=== PATIENT | male | born 1935 | race American Indian/Alaskan Native ===

== ENCOUNTER 2022-06-15 14:31 | Inpatient (IN) | payer MEDICARE ==
[2022-06-15] MEDS ORDERED: SODIUM CHLORIDE 0.9% 500 ML 500 ML IV ONE ×2 (14:47→15:52)
--- NOTE | 2022-06-15 15:13 | XRay Report ---
CHEST 1 VIEW 06/15/2022 2:05 PM INDICATION / CLINICAL INFORMATION: Syncope. COMPARISON: None available. FINDINGS: SUPPORT DEVICES: None. HEART / MEDIASTINUM: The heart size and pulmonary vasculature are normal. The aorta is normal in bk [place]. LUNGS / PLEURA: No significant pulmonary or pleural abnormality. No pneumothorax. ADDITIONAL FINDINGS: The right hemidiaphragm is slightly elevated. There are surgical changes in the lower cervical spine. IMPRESSION: No acute findings. Signer Name: Akshat Vicente MD Signed: 06/15/2022 3:09 PM Workstation Name: [email or web address]
--- NOTE | 2022-06-15 15:50 | Emergency Department Report ---
ED Syncope HPI - General Chief Complaint: Syncope Stated Complaint: SYNCOPE Time Seen by Provider: 06/15/22 15:27 Source: patient, family, old records (No previous record for review) Exam Limitations: no limitations - History of Present Illness Initial Comments: 86-year male with a past medical history of CAD with stent, multiple myeloma currently in remission, and hypertension presents to the hospital after syncopal episode while taking a shower. Patient was being assisted by his son. His son states patient was sitting in his shower chair when he complained of feeling li ghtheaded, weak, and thirsty. His son left to get water, when he returned patient was passed out in the shower chair. Patient came to and passed out 2 more times including after he was laid flat on the floor. No diaphoresis, vomiting, or respiratory distress noted. Patient denies preceding or current headache, chest pain, calf tenderness, leg edema, history of PE/DVT, shortness of breath, abdominal pain, or dysuria. Patient did not have anything to eat or much to drink this morning. PMD: Gustavo Patient's current medications include gabapentin 100 mg twice daily Flomax 0.4 mg twice daily Amlodipine 10 mg daily Losartan 50 mg daily Aspirin 81 mg daily As for statin 40 mg daily - Related Data Allergies/Adverse Reactions: Allergies No Known Allergies Allergy (Verified 06/15/22 14:37) Home Medications: Ambulatory Orders Aspirin [Adult Aspirin] 81 mg PO DAILY 06/16/22 AtorvaSTATin [Lipitor] 40 mg PO QHS 06/16/22 Gabapentin 100 mg PO Q8HR 06/16/22 Losartan [Cozaar] 50 mg PO QDAY 06/16/22 Tamsulosin [Flomax] 0.4 mg PO QDAY 06/16/22 amLODIPine 10 mg PO DAILY 06/16/22 ED Review of Systems ROS: Stated complaint: SYNCOPE Other details as noted in HPI Comment: All other systems reviewed and negative ED Past Medical Hx - Past Medical History Hx Hypertension: Yes Hx Heart Attack/AMI: Yes (1 stent) Hx of Cancer: Yes (Multiple myeloma) Additional medical history: 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 - Surgical History Additional Surgical History: Neck and back surgery - Medications Home Medications: Home Medications Medication Instructions Recorded Confirmed Last Taken Type Aspirin [Adult Aspirin] 81 mg PO DAILY 06/16/22 06/16/22 06/14/22 09:00 History AtorvaSTATin [Lipitor] 40 mg PO QHS 06/16/22 06/16/22 06/14/22 21:00 History Gabapentin 100 mg PO Q8HR 06/16/22 06/16/22 06/14/22 21:00 History Losartan [Cozaar] 50 mg PO QDAY 06/16/22 06/16/22 06/14/22 09:00 History Tamsulosin [Flomax] 0.4 mg PO QDAY 06/16/22 06/16/22 06/14/22 09:00 History amLODIPine 10 mg PO DAILY 06/16/22 06/16/22 06/14/22 09:00 History ED Physical Exam - General Limitations: No Limitations - Other Other exam information: General: No acute distress Head: Atraumatic Eyes: normal appearance ENT: Moist mucous membranes Neck: Normal appearance, no midline tenderness Chest: Clear to auscultation bilaterally CV: Regular rate and rhythm Abdomen: Soft, normal bowel sounds, nontender, nondistended, no rebound or guarding Back: Normal inspection Extremity: Normal inspection, full range of motion Neuro: Alert O x 3, no facial asymmetry, speech clear, 4+ right lower extremity strength compared to 5/5, 5/5 bilateral upper extremity strength. Sensation grossly intact. No calf tenderness or leg edema Psych: Appropriate behavior Skin: No rash ED Course Vital Signs 06/15/22 06/15/22 06/15/22 14:35 15:16 15:30 Temperature 98.2 F Pulse Rate 60 52 L 52 L Respiratory 14 11 L Rate Blood Pressure 131/68 Blood Pressure 130/62 [Left] O2 Sat by Pulse 98 99 Oximetry 06/15/22 06/15/22 06/15/22 15:45 16:00 16:16 Temperature Pulse Rate 52 L 51 L 51 L Respiratory 20 19 18 Rate Blood Pressure 167/69 160/67 154/64 Blood Pressure [Left] O2 Sat by Pulse 100 100 100 Oximetry 06/15/22 06/15/22 06/15/22 16:30 16:45 17:00 Temperature Pulse Rate 52 L 54 L 53 L Respiratory 15 17 11 L Rate Blood Pressure 125/70 164/73 125/70 Blood Pressure [Left] O2 Sat by Pulse 99 100 98 Oximetry 06/15/22 06/15/22 06/15/22 17:56 18:00 18:15 Temperature Pulse Rate 59 L 57 L 57 L Respiratory 12 15 16 Rate Blood Pressure 164/73 164/78 161/78 Blood Pressure [Left] O2 Sat by Pulse 96 95 98 Oximetry 06/15/22 06/15/22 06/15/22 18:30 18:45 19:00 Temperature Pulse Rate 57 L 62 66 Respiratory 17 16 19 Rate Blood Pressure 163/76 174/81 176/74 Blood Pressure [Left] O2 Sat by Pulse 97 100 97 Oximetry 06/15/22 06/15/22 06/15/22 19:15 19:30 19:45 Temperature Pulse Rate 73 80 71 Respiratory 21 17 18 Rate Blood Pressure 166/82 174/81 160/71 Blood Pressure [Left] O2 Sat by Pulse 97 97 97 Oximetry 06/15/22 06/15/22 06/15/22 20:00 20:15 20:30 Temperature 98.2 F Pulse Rate 71 69 74 Respiratory 17 18 21 Rate Blood Pressure 153/81 163/74 147/78 Blood Pressure 147/78 [Left] O2 Sat by Pulse 98 97 97 Oximetry 06/15/22 06/15/22 06/15/22 20:45 21:00 21:16 Temperature Pulse Rate 69 72 70 Respiratory 14 16 19 Rate Blood Pressure 152/77 148/76 157/84 Blood Pressure [Left] O2 Sat by Pulse 100 93 98 Oximetry 06/15/22 06/15/22 06/15/22 21:30 21:46 22:00 Temperature Pulse Rate 68 70 70 Respiratory 17 19 19 Rate Blood Pressure 160/83 169/87 160/78 Blood Pressure [Left] O2 Sat by Pulse 96 97 98 Oximetry 06/15/22 06/15/22 06/15/22 22:15 22:30 22:45 Temperature Pulse Rate 70 71 67 Respiratory 19 22 18 Rate Blood Pressure 153/76 164/78 159/78 Blood Pressure [Left] O2 Sat by Pulse 95 98 97 Oximetry 06/15/22 06/15/22 06/15/22 23:00 23:14 23:15 Temperature Pulse Rate 76 68 67 Respiratory 23 17 17 Rate Blood Pressure 166/95 154/80 154/80 Blood Pressure [Left] O2 Sat by Pulse 97 98 97 Oximetry 06/15/22 06/15/22 06/16/22 23:30 23:46 00:00 Temperature Pulse Rate 68 68 67 Respiratory 18 18 20 Rate Blood Pressure 152/80 140/73 143/73 Blood Pressure [Left] O2 Sat by Pulse 96 95 95 Oximetry 06/16/22 00:15 Temperature Pulse Rate 65 Respiratory 16 Rate Blood Pressure 151/73 Blood Pressure [Left] O2 Sat by Pulse 95 Oximetry - Consultations Consultation #1: 06/15/22 20:51 case d/w Gustavo Magallanes. granted permission to admit the patient here ED Medical Decision Making - Lab Data Result diagrams: 06/17/22 05:18 06/17/22 05:18 Lab Results 06/15/22 06/15/22 06/15/22 Range/Units 15:35 15:35 15:35 WBC 2.4 L (4.5-11.0) K/mm3 RBC 3.14 L (3.65-5.03) M/mm3 Hgb 10.2 L (11.8-15.2) gm/dl Hct 31.3 L (35.5-45.6) % MCV 100 H (84-94) fl MCH 33 H (28-32) pg MCHC 33 (32-34) % RDW 17.4 H (13.2-15.2) % Plt Count 102 L (140-440) K/mm3 Lymph % (Auto) 17.3 (13.4-35.0) % [place] % (Auto) 11.4 H (0.0-7.3) % Eos % (Auto) 0.9 (0.0-4.3) % Baso % (Auto) 0.2 (0.0-1.8) % Lymph # (Auto) 0.4 L (1.2-5.4) K/mm3 [place] # (Auto) 0.3 (0.0-0.8) K/mm3 Eos # (Auto) 0.0 (0.0-0.4) K/mm3 Baso # (Auto) 0.0 (0.0-0.1) K/mm3 Seg Neutrophils % 70.2 H (40.0-70.0) % Seg Neutrophils # 1.7 L (1.8-7.7) K/mm3 PT 15.5 H (12.2-14.9) Sec. INR 1.10 (0.87-1.13) Sodium 140 (137-145) mmol/L Potassium 4.0 (3.6-5.0) mmol/L Chloride 106.0 (98-107) mmol/L Carbon Dioxide 23 (22-30) mmol/L Anion Gap 15 mmol/L BUN 26 H (9-20) mg/dL Creatinine 1.2 (0.8-1.3) mg/dL Estimated GFR > 60 ml/min BUN/Creatinine Ratio 22 % Glucose 107 H (75-100) mg/dL Calcium 9.1 (8.4-10.2) mg/dL Magnesium 1.60 L (1.7-2.3) mg/dL Total Bilirubin 0.60 (0.1-1.2) mg/dL AST 30 (5-40) units/L ALT 15 (7-56) units/L Alkaline Phosphatase 99 (35-129) units/L Total Creatine Kinase 208 H (55-170) units/L CK-MB (CK-2) 2.5 (0.0-4.0) ng/mL CK-MB (CK-2) Rel Index 1.2 (0-4) Troponin T 0.075 H (0.00-0.029) ng/mL Total Protein 7.0 (6.3-8.2) g/dL Albumin 3.5 L (3.9-5) g/dL Albumin/Globulin Ratio 1.0 % Triglycerides 67 (2-149) mg/dL Cholesterol 174 (50-199) mg/dL LDL Cholesterol Direct 110 (50-130) mg/dL HDL Cholesterol 50 (40-59) mg/dL Cholesterol/HDL Ratio 3.48 % TSH (0.270-4.200) mlU/mL Free T4 (0.76-1.46) ng/dL 06/15/22 Range/Units 16:23 WBC (4.5-11.0) K/mm3 RBC (3.65-5.03) M/mm3 Hgb (11.8-15.2) gm/dl Hct (35.5-45.6) % MCV (84-94) fl MCH (28-32) pg MCHC (32-34) % RDW (13.2-15.2) % Plt Count (140-440) K/mm3 Lymph % (Auto) (13.4-35.0) % [place] % (Auto) (0.0-7.3) % Eos % (Auto) (0.0-4.3) % Baso % (Auto) (0.0-1.8) % Lymph # (Auto) (1.2-5.4) K/mm3 [place] # (Auto) (0.0-0.8) K/mm3 Eos # (Auto) (0.0-0.4) K/mm3 Baso # (Auto) (0.0-0.1) K/mm3 Seg Neutrophils % (40.0-70.0) % Seg Neutrophils # (1.8-7.7) K/mm3 PT (12.2-14.9) Sec. INR (0.87-1.13) Sodium (137-145) mmol/L Potassium (3.6-5.0) mmol/L Chloride (98-107) mmol/L Carbon Dioxide (22-30) mmol/L Anion Gap mmol/L BUN (9-20) mg/dL Creatinine (0.8-1.3) mg/dL Estimated GFR ml/min BUN/Creatinine Ratio % Glucose (75-100) mg/dL Calcium (8.4-10.2) mg/dL Magnesium (1.7-2.3) mg/dL Total Bilirubin (0.1-1.2) mg/dL AST (5-40) units/L ALT (7-56) units/L Alkaline Phosphatase (35-129) units/L Total Creatine Kinase (55-170) units/L CK-MB (CK-2) (0.0-4.0) ng/mL CK-MB (CK-2) Rel Index (0-4) Troponin T (0.00-0.029) ng/mL Total Protein (6.3-8.2) g/dL Albumin (3.9-5) g/dL Albumin/Globulin Ratio % Triglycerides (2-149) mg/dL Cholesterol (50-199) mg/dL LDL Cholesterol Direct (50-130) mg/dL HDL Cholesterol (40-59) mg/dL Cholesterol/HDL Ratio % TSH 3.110 (0.270-4.200) mlU/mL Free T4 1.48 H (0.76-1.46) ng/dL - EKG Data -: EKG Interpreted by Ri EKG shows normal: sinus rhythm, intervals (GA prolongation 259), ST-T waves (No STEMI) Rate: normal - EKG Data When compared to previous EKG there are: previous EKG unavailable - Radiology Data Radiology results: report reviewed CHEST 1 VIEW 06/15/2022 2:05 PM INDICATION / CLINICAL INFORMATION: Syncope. COMPARISON: None available. FINDINGS: SUPPORT DEVICES: None. HEART / MEDIASTINUM: The heart size and pulmonary vasculature are normal. The aorta is normal in caliber. LUNGS / PLEURA: No significant pulmonary or pleural abnormality. No pneumothorax. ADDITIONAL FINDINGS: The right hemidiaphragm is slightly elevated. There are surgical changes in the lower cervical spine. IMPRESSION: No acute findings. Critical care attestation.: If time is entered above; I have spent that time in minutes in the direct care of this critically ill patient, excluding procedure time. ED Disposition Clinical Impression: Syncope and collapse, Elevated troponin level not due myocardial infarction Disposition: 09 ADMITTED INPATIENT Is pt being admited?: Yes Condition: Stable
[2022-06-15 15:57] LABS: Basophils % (Auto) 0.2 % (0.0-1.8); Eosinophils % (Auto) 0.9 % (0.0-4.3); Hematocrit 31.3 % (35.5-45.6); Hemoglobin 10.2 gm/dl (11.8-15.2); Lymphocytes # (Auto) 0.4 K/mm3 (1.2-5.4); Lymphocytes % (Auto) 17.3 % (13.4-35.0); Mean Corpuscular HGB Conc 33 % (32-34); Mean Corpuscular Volume 100 fl (84-94); Monocytes # (Auto) 0.3 K/mm3 (0.0-0.8); Monocytes % (Auto) 11.4 % (0.0-7.3); Platelet Count 102 K/mm3 (140-440); Red Blood Count 3.14 M/mm3 (3.65-5.03); Red Cell Distribution Width 17.4 % (13.2-15.2)
[2022-06-15 16:07] LABS: INR 1.1 (0.87-1.13)
[2022-06-15 16:20] LABS: Creatine Kinase MB 2.5 ng/mL (0.0-4.0)
[2022-06-15 16:22] LABS: Alanine Aminotransferase 15 units/L (7-56); Albumin 3.5 g/dL (3.9-5); BUN/Creatinine Ratio 22; Blood Urea Nitrogen 26 mg/dL (9-20); Calcium 9.1 mg/dL (8.4-10.2); Hemolysis Index 2
[2022-06-15 16:33] LABS: Chol/HDL Ratio 3.48 %; HDL Cholesterol 50 mg/dL (40-59); LDL Cholesterol,Direct 110 mg/dL (50-130)
[2022-06-15] MEDS ORDERED: MAGNESIUM SULFATE 2 GM/50 ML BAG IV ONE (17:11)
--- NOTE | 2022-06-15 17:26 | Cat Scan Report ---
CT HEAD WITHOUT CONTRAST INDICATION / CLINICAL INFORMATION: syncope, hx of multiple myeloma. TECHNIQUE: All CT scans at this location are performed using CT dose reduction for ALARA by means of automated exposure control. COMPARISON: None available. FINDINGS: CEREBRAL/CEREBELLAR PARENCHYMA: Mild age-related generalized cerebral cortical atrophy. Mild perivent ricular and subcortical chronic microangiopathy. Small chronic lacunar type infarcts within the right external capsule of the basal ganglia likely partially involving the insular cortex. No CT evidence for an acute or subacute territorial infarct. HEMORRHAGE: No acute intra-axial hemorrhage or extra-axial fluid collection. MASS: No mass or mass effect. VENTRICULAR SYSTEM: Normal in size and morphology for the patient's age. ORBITS: Normal as visualized. SOFT TISSUES/SKULL: No scalp hematoma or skull fracture. Small arachnoid granulations along the skull vertex without definite destructive osseous lesion. PARANASAL SINUSES/MASTOID AIR CELLS: Moderate left sphenoid sinus mucosal thickening and air-fluid le larissa. IMPRESSION: 1. No acute intracranial process. 2. 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 3. Moderate left sphenoid sinus mucosal disease. Signer Name: Akshat Cortez MD Signed: 06/15/2022 5:22 PM Workstation Name: [email or web address]
[2022-06-15 18:20] LABS: Free T4 (Free Thyroxine) 1.48 ng/dL (0.76-1.46)
[2022-06-15 21:34] LABS: Color,Urine Yellow (Yellow); Mucus,Urine FEW /HPF
[2022-06-15 21:35] LABS: RBC,Urine < 1.0 /HPF (0.0-6.0)
[2022-06-15] MEDS ORDERED: MAGNESIUM HYDROXIDE (MOM) ORAL LIQD UDC PO PRN (22:20)
[2022-06-15] MEDS ORDERED: ACETAMINOPHEN 325 MG TAB PO PRN (22:20)
[2022-06-15] MEDS ORDERED: ONDANSETRON 4 MG/2 ML INJ IV PRN (22:20)
[2022-06-15] MEDS ORDERED: MORPHINE 2 MG/1 ML INJ IV PRN (22:20)
[2022-06-15] MEDS ORDERED: MORPHINE 4 MG/1 ML INJ IV PRN (22:20)
--- NOTE | 2022-06-15 22:38 | History and Physical Report ---
History of Present Illness Date of examination: 06/15/22 Date of admission: 06/15/2022 Chief complaint: Syncope History of present illness: 86-year-old male with known history of coronary artery disease with stent placement, multiple myeloma in remission, hypertension, presents to the emergency room today for evaluation of syncopal episode. He was in the shower when he has been assisted by his son when he indicates that he felt lightheaded. He also said he felt weak and thirsty. He laid off had a syncopal episode while on the shower chair. He has had 2 other episodes prior to reporting to the emergency room. He denies any chest pain or shortness of breath, no nausea or vomiting, no abdominal pain. Patient denies any headache. No diaphoresis. Work-up in the emergency room today, labs are significant for slightly elevated troponin of 0.075. BUN of 26. Urinalysis was unremarkable. CT of the head shows no acute intracranial process. 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 Chest x-ray shows no acute findings. 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) Past Surgical History: PTCA, Other (Neck and back surgery) Social history: no significant social history Family history: no significant family history Medications and Allergies Allergies Allergy/AdvReac Type Severity Reaction Status Date / Time No Known Allergies Allergy Verified 06/15/22 14:37 Active Meds: Active Medications Acetaminophen (Acetaminophen 325 Mg Tab) 650 mg PO Q4H PRN PRN Reason: Pain MILD(1-3)/Fever >100.5/PERRY Sodium Chloride (Nacl 0.9% 1000 Ml) 1,000 mls @ 125 mls/hr IV DIRECT SARIKA Magnesium Hydroxide (Magnesium Hydroxide (Mom) Oral Liqd Udc) 30 ml PO Q4H PRN PRN Reason: Constipation Morphine Sulfate (Morphine 2 Mg/1 Ml Inj) 2 mg IV Q4H PRN PRN Reason: Pain, Moderate (4-6) Morphine Sulfate (Morphine 4 Mg/1 Ml Inj) 4 mg IV Q4H PRN PRN Reason: Pain , Severe (7-10) Ondansetron HCl (Ondansetron 4 Mg/2 Ml Inj) 4 mg IV Q8H PRN PRN Reason: Nausea And Vomiting Sodium Chloride (Sodium Chloride 0.9% 10 Ml Flush Syringe) 10 ml IV BID SARIKA Sodium Chloride (Sodium Chloride 0.9% 10 Ml Flush Syringe) 10 ml IV PRN PRN PRN Reason: LINE FLUSH Review of Systems Constitutional: no fever, no chills Ears, nose, mouth and throat: no nasal congestion, no sore throat Cardiovascular: no chest pain, no palpitations Respiratory: no cough, no shortness of breath Gastrointestinal: no abdominal pain, no nausea, no vomiting, no diarrhea Genitourinary Male: no dysuria, no hematuria, no flank pain Musculoskeletal: no neck pain, no low back pain Integumentary: no rash, no pruritis Neurological: syncope, no headaches, no confusion Psychiatric: no anxiety, no depression Endocrine: no polyphagia, no polydipsia, no polyuria Exam - Constitutional Vitals: Temp Pulse Resp BP Pulse Ox 98.2 F 69 20 147/78 96 06/15/22 20:30 06/15/22 20:30 06/15/22 20:30 06/15/22 20:30 06/15/22 20:30 General appearance: Present: no acute distress, well-nourished - EENT Eyes: Present: PERRL, EOM intact. Absent: scleral icterus ENT: hearing intact, clear oral mucosa, dentition normal - Neck Neck: Present: supple, normal ROM - Respiratory Respiratory effort: normal Respiratory: bilateral: CTA - Cardiovascular Rhythm: regular Heart Sounds: Present: S1 & S2. Absent: gallop, systolic murmur, diastolic murmur, rub, click - Extremities Extremities: no ischemia, pulses intact, pulses symmetrical, No edema, normal temperature, normal color, Full ROM Peripheral Pulses: within normal limits - Abdominal General gastrointestinal: Present: soft, non-tender, non-distended, normal bowel sounds. Absent: mass - Integumentary Integumentary: Present: clear, warm, dry, normal turgor. Absent: rash - Musculoskeletal Musculoskeletal: strength equal bilaterally - Psychiatric Psychiatric: appropriate mood/affect, intact judgment & insight, memory intact, cooperative - Neurologic Neurologic: CNII-XII intact, no focal deficits, moves all extremities HEART Score - HEART Score Troponin: Troponin T 0.050 ng/mL (0.00-0.029) H D 06/15/22 19:47 Results - Labs CBC & Chem 7: 06/15/22 15:35 06/15/22 15:35 Labs: Abnormal lab results 06/15/22 06/15/22 06/15/22 Range/Units 15:35 15:35 15:35 WBC 2.4 L (4.5-11.0) K/mm3 RBC 3.14 L (3.65-5.03) M/mm3 Hgb 10.2 L (11.8-15.2) gm/dl Hct 31.3 L (35.5-45.6) % MCV 100 H (84-94) fl MCH 33 H (28-32) pg RDW 17.4 H (13.2-15.2) % Plt Count 102 L (140-440) K/mm3 [place] % (Auto) 11.4 H (0.0-7.3) % Lymph # (Auto) 0.4 L (1.2-5.4) K/mm3 Seg Neutrophils % 70.2 H (40.0-70.0) % Seg Neutrophils # 1.7 L (1.8-7.7) K/mm3 PT 15.5 H (12.2-14.9) Sec. BUN 26 H (9-20) mg/dL Glucose 107 H (75-100) mg/dL Magnesium 1.60 L (1.7-2.3) mg/dL Total Creatine Kinase 208 H (55-170) units/L Troponin T 0.075 H (0.00-0.029) ng/mL Albumin 3.5 L (3.9-5) g/dL Free T4 (0.76-1.46) ng/dL 06/15/22 06/15/22 Range/Units 16:23 19:47 WBC (4.5-11.0) K/mm3 RBC (3.65-5.03) M/mm3 Hgb (11.8-15.2) gm/dl Hct (35.5-45.6) % MCV (84-94) fl MCH (28-32) pg RDW (13.2-15.2) % Plt Count (140-440) K/mm3 [place] % (Auto) (0.0-7.3) % Lymph # (Auto) (1.2-5.4) K/mm3 Seg Neutrophils % (40.0-70.0) % Seg Neutrophils # (1.8-7.7) K/mm3 PT (12.2-14.9) Sec. BUN (9-20) mg/dL Glucose (75-100) mg/dL Magnesium (1.7-2.3) mg/dL Total Creatine Kinase (55-170) units/L Troponin T 0.050 H D (0.00-0.029) ng/mL Albumin (3.9-5) g/dL Free T4 1.48 H (0.76-1.46) ng/dL Assessment and Plan Assessment: 1.Syncope 2.H/O Multiple Myeloma 3.H/O CAD with stent 4. Plan: 1. Patient admitted and will be closely monitored on telemetry. 2. We will schedule for echocardiogram and carotid Doppler. 3. We will resume routine home medications once reconciled. 4. DVT prophylaxis: SQ Heparin Code Status: Full Code
--- NOTE | 2022-06-16 09:56 | Progress Note ---
Assessment and Plan Assessment and plan: 86-year-old male with known history of coronary artery disease with stent placement, multiple myeloma in remission, hypertension, presented to the emergency room for evaluation of syncopal episode. He was in the shower and indicated that he felt lightheaded. He also said he felt weak and thirsty. He later had a syncopal episode while on the shower chair. He has had 2 other episodes prior to reporting to the emergency room. He denied any chest pain or shortness of breath, no nausea or vomiting, no abdominal pain. Work-up in the emergency room revealed elevated troponin of 0.075. BUN of 26. Urinalysis was unremarkable. CT of the head shows no acute intracranial process. 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 Chest x-ray showed no acute findings. The patient was admitted with diagnosis below: Syncope History of multiple myeloma History of CAD with stent 06/16/2022. Patient has had no arrhythmia on telemetry. We will follow-up carotid Dopplers and echocardiogram. Cardiology consultation pending. We will also consult hematology/oncology for the multiple myeloma History Interval history: No new issues overnight Hospitalist Physical - Constitutional Vitals: Temp Pulse Resp BP Pulse Ox 98.1 F 63 17 134/73 98 06/16/22 07:27 06/16/22 07:30 06/16/22 07:27 06/16/22 07:27 06/16/22 07:27 General appearance: Present: no acute distress, well-nourished - EENT Eyes: Present: PERRL, EOM intact ENT: hearing intact, clear oral mucosa, dentition normal - Neck Neck: Present: supple, normal ROM - Respiratory Respiratory effort: normal Respiratory: bilateral: CTA - Cardiovascular Rhythm: regular Heart Sounds: Present: S1 & S2. Absent: gallop, rub - Extremities Extremities: no ischemia, No edema, Full ROM - Abdominal General gastrointestinal: soft, non-tender, non-distended, normal bowel sounds - Integumentary Integumentary: Present: clear, warm, dry - Neurologic Neurologic: CNII-XII intact, moves all extremities HEART Score - HEART Score Troponin: Troponin T 0.050 ng/mL (0.00-0.029) H D 06/15/22 19:47 Results - Labs CBC & Chem 7: 06/15/22 15:35 06/15/22 15:35 Labs: Laboratory Last Values WBC 2.4 K/mm3 (4.5-11.0) L 06/15/22 15:35 RBC 3.14 M/mm3 (3.65-5.03) L 06/15/22 15:35 Hgb 10.2 gm/dl (11.8-15.2) L 06/15/22 15:35 Hct 31.3 % (35.5-45.6) L 06/15/22 15:35 MCV 100 fl (84-94) H 06/15/22 15:35 MCH 33 pg (28-32) H 06/15/22 15:35 MCHC 33 % (32-34) 06/15/22 15:35 RDW 17.4 % (13.2-15.2) H 06/15/22 15:35 Plt Count 102 K/mm3 (140-440) L 06/15/22 15:35 Lymph % (Auto) 17.3 % (13.4-35.0) 06/15/22 15:35 [place] % (Auto) 11.4 % (0.0-7.3) H 06/15/22 15:35 Eos % (Auto) 0.9 % (0.0-4.3) 06/15/22 15:35 Baso % (Auto) 0.2 % (0.0-1.8) 06/15/22 15:35 Lymph # (Auto) 0.4 K/mm3 (1.2-5.4) L 06/15/22 15:35 [place] # (Auto) 0.3 K/mm3 (0.0-0.8) 06/15/22 15:35 Eos # (Auto) 0.0 K/mm3 (0.0-0.4) 06/15/22 15:35 Baso # (Auto) 0.0 K/mm3 (0.0-0.1) 06/15/22 15:35 Seg Neutrophils % 70.2 % (40.0-70.0) H 06/15/22 15:35 Seg Neutrophils # 1.7 K/mm3 (1.8-7.7) L 06/15/22 15:35 PT 15.5 Sec. (12.2-14.9) H 06/15/22 15:35 INR 1.10 (0.87-1.13) 06/15/22 15:35 Sodium 140 mmol/L (137-145) 06/15/22 15:35 Potassium 4.0 mmol/L (3.6-5.0) 06/15/22 15:35 Chloride 106.0 mmol/L (98-107) 06/15/22 15:35 Carbon Dioxide 23 mmol/L (22-30) 06/15/22 15:35 Anion Gap 15 mmol/L 06/15/22 15:35 BUN 26 mg/dL (9-20) H 06/15/22 15:35 Creatinine 1.2 mg/dL (0.8-1.3) 06/15/22 15:35 Estimated GFR > 60 ml/min 06/15/22 15:35 BUN/Creatinine Ratio 22 % 06/15/22 15:35 Glucose 107 mg/dL (75-100) H 06/15/22 15:35 Calcium 9.1 mg/dL (8.4-10.2) 06/15/22 15:35 Magnesium 1.60 mg/dL (1.7-2.3) L 06/15/22 15:35 Total Bilirubin 0.60 mg/dL (0.1-1.2) 06/15/22 15:35 AST 30 units/L (5-40) 06/15/22 15:35 ALT 15 units/L (7-56) 06/15/22 15:35 Alkaline Phosphatase 99 units/L (35-129) 06/15/22 15:35 Total Creatine Kinase 208 units/L (55-170) H 06/15/22 15:35 CK-MB (CK-2) 2.5 ng/mL (0.0-4.0) 06/15/22 15:35 CK-MB (CK-2) Rel Index 1.2 (0-4) 06/15/22 15:35 Troponin T 0.050 ng/mL (0.00-0.029) H D 06/15/22 19:47 Total Protein 7.0 g/dL (6.3-8.2) 06/15/22 15:35 Albumin 3.5 g/dL (3.9-5) L 06/15/22 15:35 Albumin/Globulin Ratio 1.0 % 06/15/22 15:35 Triglycerides 67 mg/dL (2-149) 06/15/22 15:35 Cholesterol 174 mg/dL (50-199) 06/15/22 15:35 LDL Cholesterol Direct 110 mg/dL (50-130) 06/15/22 15:35 HDL Cholesterol 50 mg/dL (40-59) 06/15/22 15:35 Cholesterol/HDL Ratio 3.48 % 06/15/22 15:35 TSH 3.110 mlU/mL (0.270-4.200) 06/15/22 16:23 Free T4 1.48 ng/dL (0.76-1.46) H 06/15/22 16:23 Urine Color Yellow (Yellow) 06/15/22 19:34 Urine Turbidity Clear (Clear) 06/15/22 19:34 Specific [place] (Man) 1.010 (1.003-1.030) 06/15/22 19:34 Ur Protein (Man) 1+ mg/dL (Negative) 06/15/22 19:34 Ur Ketones (Man) Negative (Negative) 06/15/22 19:34 Urine Bilirubin (Man) Negative (Negative) 06/15/22 19:34 Urine WBC (Auto) 1.0 /HPF (0.0-6.0) 06/15/22 19:34 Urine RBC (Auto) < 1.0 /HPF (0.0-6.0) 06/15/22 19:34 Urine RBC (Manual) Negative (Negative) 06/15/22 19:34 Urine Mucus Few /HPF 06/15/22 19:34 [place]/IV: Voiding Method Urinal Active Medications - Current Medications Current Medications: Generic Name Dose Route Start Last Admin Trade Name Freq PRN Reason Stop Dose Admin Acetaminophen 650 mg 06/15/22 22:20 Acetaminophen 325 Mg Tab PO Q4H PRN Pain MILD(1-3)/Fever >100.5/PERRY Sodium Chloride 1,000 mls @ 125 mls/hr 06/15/22 22:30 Nacl 0.9% 1000 Ml IV DIRECT SARIKA Magnesium Hydroxide 30 ml 06/15/22 22:20 Magnesium Hydroxide (Mom) Oral Liqd Udc PO Q4H PRN Constipation Morphine Sulfate 2 mg 06/15/22 22:20 Morphine 2 Mg/1 Ml Inj IV Q4H PRN Pain, Moderate (4-6) Morphine Sulfate 4 mg 06/15/22 22:20 Morphine 4 Mg/1 Ml Inj IV Q4H PRN Pain , Severe (7-10) Ondansetron HCl 4 mg 06/15/22 22:20 Ondansetron 4 Mg/2 Ml Inj IV Q8H PRN Nausea And Vomiting Sodium Chloride 10 ml 06/16/22 10:00 Sodium Chloride 0.9% 10 Ml Flush Syringe IV BID SARIKA Sodium Chloride 10 ml 06/15/22 22:20 Sodium Chloride 0.9% 10 Ml Flush Syringe IV PRN PRN LINE FLUSH
--- NOTE | 2022-06-16 10:49 | Consultation ---
History of Present Illness Consult date: 06/16/22 Requesting physician: DA MORRIS Consult reason: abnormal cardiac enzymes, syncope History of present illness: 86-year-old male with history of hypertension multiple myeloma in remission coronary artery disease with stent placement per HPI was admitted here after syncopal episode. He says he was taking a bath with help of his son in hot water and was feeling hot so he asked his son to get some cold water. During this time he passed out and the next thing he remembers is laying on the floor on a pillow which his son helped him. He denies any chest pain palpitations headache diaphoresis during this episode. He says he was short of breath. He says he has chronic shortness of breath on exertion which is unchanged. Patient says he has not eaten anything that day for like 15 to 20 hours and has not been drinking enough water. He reports multiple similar previous episodes few years ago which decreased after the medication was adjusted and he was told by his legend maker that he needs to keep himself hydrated. Patient reports he had cardiac work-up in the past with at least 3 stress test last october which was normal. 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) Past Surgical History: PTCA, Other (Neck and back surgery) Social history: no significant social history Family history: no significant family history Medications and Allergies Allergies Allergy/AdvReac Type Severity Reaction Status Date / Time No Known Allergies Allergy Verified 06/15/22 14:37 Home Medications Medication Instructions Recorded Confirmed Last Taken Type Aspirin [Adult Aspirin] 81 mg PO DAILY 06/16/22 06/16/22 06/14/22 09:00 History AtorvaSTATin [Lipitor] 40 mg PO QHS 06/16/22 06/16/22 06/14/22 21:00 History Gabapentin [Neurontin] 100 mg PO Q8HR 06/16/22 06/16/22 06/14/22 21:00 History Losartan [Cozaar] 50 mg PO QDAY 06/16/22 06/16/22 06/14/22 09:00 History Tamsulosin [Flomax] 0.4 mg PO QDAY 06/16/22 06/16/22 06/14/22 09:00 History amLODIPine [Norvasc] 10 mg PO DAILY 06/16/22 06/16/22 06/14/22 09:00 History Active Meds: Active Medications Acetaminophen (Acetaminophen 325 Mg Tab) 650 mg PO Q4H PRN PRN Reason: Pain MILD(1-3)/Fever >100.5/PERRY Sodium Chloride (Nacl 0.9% 1000 Ml) 1,000 mls @ 125 mls/hr IV DIRECT SARIKA Magnesium Hydroxide (Magnesium Hydroxide (Mom) Oral Liqd Udc) 30 ml PO Q4H PRN PRN Reason: Constipation Morphine Sulfate (Morphine 2 Mg/1 Ml Inj) 2 mg IV Q4H PRN PRN Reason: Pain, Moderate (4-6) Morphine Sulfate (Morphine 4 Mg/1 Ml Inj) 4 mg IV Q4H PRN PRN Reason: Pain , Severe (7-10) Ondansetron HCl (Ondansetron 4 Mg/2 Ml Inj) 4 mg IV Q8H PRN PRN Reason: Nausea And Vomiting Sodium Chloride (Sodium Chloride 0.9% 10 Ml Flush Syringe) 10 ml IV BID SARIKA Sodium Chloride (Sodium Chloride 0.9% 10 Ml Flush Syringe) 10 ml IV PRN PRN PRN Reason: LINE FLUSH Review of Systems Constitutional: weakness Ears, nose, mouth and throat: no ear pain Cardiovascular: syncope, dyspnea on exertion, no chest pain, no orthopnea, no palpitations, no rapid/irregular heart beat, no edema, no paroxysmal nocturnal dyspnea Respiratory: cough (Chronic) Gastrointestinal: no abdominal pain, no nausea, no vomiting Genitourinary Male: no dysuria Integumentary: no rash Neurological: no head injury Psychiatric: no anxiety Endocrine: no palpatations Hematologic/Lymphatic: no easy bruising Physical Examination Vital Signs Temp Pulse Resp BP Pulse Ox 98.2 F 60 14 130/62 98 06/15/22 14:35 06/15/22 14:35 06/15/22 14:35 06/15/22 14:35 06/15/22 14:35 General appearance: no acute distress HEENT: Positive: PERRL Neck: Positive: neck supple. Negative: JVD/HJR Cardiac: Positive: Reg Rate and Rhythm, S1/S2. Negative: Audible Murmur Lungs: Positive: clear to auscultation, Decreased Breath Sounds Neuro: Positive: Grossly Intact Abdomen: Positive: Soft Skin: Negative: Rash Extremities: Absent: edema Results 06/15/22 15:35 06/16/22 04:00 Cardiac Enzymes 06/15/22 Range/Units 15:35 AST 30 (5-40) units/L CK-MB (CK-2) 2.5 (0.0-4.0) ng/mL Coagulation 06/15/22 Range/Units 15:35 PT 15.5 H (12.2-14.9) Sec. INR 1.10 (0.87-1.13) Lipids 06/15/22 Range/Units 15:35 Triglycerides 67 (2-149) mg/dL Cholesterol 174 (50-199) mg/dL HDL Cholesterol 50 (40-59) mg/dL Cholesterol/HDL Ratio 3.48 % CBC 06/15/22 Range/Units 15:35 WBC 2.4 L (4.5-11.0) K/mm3 RBC 3.14 L (3.65-5.03) M/mm3 Hgb 10.2 L (11.8-15.2) gm/dl Hct 31.3 L (35.5-45.6) % Plt Count 102 L (140-440) K/mm3 Lymph # (Auto) 0.4 L (1.2-5.4) K/mm3 [place] # (Auto) 0.3 (0.0-0.8) K/mm3 Eos # (Auto) 0.0 (0.0-0.4) K/mm3 Baso # (Auto) 0.0 (0.0-0.1) K/mm3 Comprehensive Metabolic Panel 06/15/22 Range/Units 15:35 Sodium 140 (137-145) mmol/L Potassium 4.0 (3.6-5.0) mmol/L Chloride 106.0 (98-107) mmol/L Carbon Dioxide 23 (22-30) mmol/L BUN 26 H (9-20) mg/dL Creatinine 1.2 (0.8-1.3) mg/dL Glucose 107 H (75-100) mg/dL Calcium 9.1 (8.4-10.2) mg/dL AST 30 (5-40) units/L ALT 15 (7-56) units/L Alkaline Phosphatase 99 (35-129) units/L Total Protein 7.0 (6.3-8.2) g/dL Albumin 3.5 L (3.9-5) g/dL - Imaging and Cardiology Echo: report reviewed, image reviewed (Patient has normal ejection fraction. No wall motion abnormalities. No major valvular abnormalities.) EKG interpretations - Telemetry EKG Rhythm: Sinus Rhythm (Blocked PACs) - EKG Sinus rhythms and dysrhythmias: sinus rhythm AV and intraventricular conduction: 1 AV block Myocardial infarction: septal NM (old age or ind Assessment and Plan - Patient Problems (1) Syncope and collapse Current Visit: Yes Status: Acute Plan to address problem: Syncope appears secondary to dehydration/vasovagal. Echo is normal. No further cardiac work-up needed at this time. Follow-up carotid ultrasound. (2) Elevated troponin level not due myocardial infarction Current Visit: Yes Status: Acute Plan to address problem: Elevated troponin borderline nonspecific, not clearly suggestive of an acute NM especially given his nonspecific EKG and echocardiogram being normal.
[2022-06-16 10:53] LABS: BUN/Creatinine Ratio 27; Blood Urea Nitrogen 24 mg/dL (9-20); Calcium 8.7 mg/dL (8.4-10.2); Hemolysis Index 4
[2022-06-16] MEDS: SODIUM CHLORIDE 0.9% 1000 ML 1,000 ML IV SCH ×2 (11:58→19:32)
--- NOTE | 2022-06-16 13:11 | Electrocardiograph Report ---
[facility] Test Date: 2022-06-15 Test Time: 15:12:13 Pat Name: CECI KIM Department: Room: A451 1 Gender: M [employer] Instructor: AILYN : [id number] Requested By: PEBBLES MADRIGAL Order Number: [id number] Reading MD: Alycia Martinez Measurements Intervals [place] Rate: 51 P: 39 [place]: 259 QRS: 35 QRSD: 98 T: 33 QT: 455 QTc: 421 Interpretive Statements Sinus bradycardia Prolonged [place] interval Anteroseptal infarct, age indeterminate No previous ECG available for comparison Electronically Signed On 06-16-2022 13:11:29 EDT by Alycia Martinez
--- NOTE | 2022-06-16 15:02 | Hem/Onc Consultation ---
History of Present Illness - Reason for Consult Consult date: 06/16/22 History of multiple myeloma - History of Present Illness Heme Data Review CPT 40607 Dx Multiple Myeloma This is a 86yo male presented to [facility] ED due to a syncopal episode. Past medical history of coronary artery disease with stent placement, multiple myeloma in remission, and hypertension. As per reports, he was in the shower and indicated that he felt lightheaded. He also said he felt weak and thirsty. He later had a syncopal episode while on the shower chair. He has had 2 other episodes prior to reporting to the emergency room. He denied chest pain, shortness of breath, nausea, vomiting, or abdominal pain. Work-up in the emergency room revealed elevated troponin of 0.075. BUN of 26. Urinalysis was unremarkable. CT of the head shows no acute intracranial process. 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 Chest x-ray showed no acute findings. Hematology/Oncology was consulted for history of multiple myeloma. DATA REVIEWED BELOW IMP Macrocytic anemia, thrombocytopenia, and leukopenia likely secondary to multiple myeloma and liver dysfunction PLAN: Labs to include spep w.DARRON, B12/folate, iron studies No plans for pRBC transfusion at this javi Laboratory Last Values WBC 2.4 K/mm3 (4.5-11.0) L 06/15/22 15:35 Hgb 10.2 gm/dl (11.8-15.2) L 06/15/22 15:35 Hct 31.3 % (35.5-45.6) L 06/15/22 15:35 MCV 100 fl (84-94) H 06/15/22 15:35 RDW 17.4 % (13.2-15.2) H 06/15/22 15:35 Plt Count 102 K/mm3 (140-440) L 06/15/22 15:35 [place] % (Auto) 11.4 % (0.0-7.3) H 06/15/22 15:35 Lymph # (Auto) 0.4 K/mm3 (1.2-5.4) L 06/15/22 15:35 Seg Neutrophils % 70.2 % (40.0-70.0) H 06/15/22 15:35 Seg Neutrophils # 1.7 K/mm3 (1.8-7.7) L 06/15/22 15:35 PT 15.5 Sec. 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) Past Surgical History: PTCA, Other (Neck and back surgery) Social history: no significant social history Family history: no significant family history Medications and Allergies Allergies Allergy/AdvReac Type Severity Reaction Status Date / Time No Known Allergies Allergy Verified 06/15/22 14:37 Home Medications Medication Instructions Recorded Confirmed Last Taken Type Aspirin [Adult Aspirin] 81 mg PO DAILY 06/16/22 06/16/22 06/14/22 09:00 History AtorvaSTATin [Lipitor] 40 mg PO QHS 06/16/22 06/16/22 06/14/22 21:00 History Gabapentin [Neurontin] 100 mg PO Q8HR 06/16/22 06/16/22 06/14/22 21:00 History Losartan [Cozaar] 50 mg PO QDAY 06/16/22 06/16/22 06/14/22 09:00 History Tamsulosin [Flomax] 0.4 mg PO QDAY 06/16/22 06/16/22 06/14/22 09:00 History amLODIPine [Norvasc] 10 mg PO DAILY 06/16/22 06/16/22 06/14/22 09:00 History Active Meds: Active Medications Acetaminophen (Acetaminophen 325 Mg Tab) 650 mg PO Q4H PRN PRN Reason: Pain MILD(1-3)/Fever >100.5/PERRY Sodium Chloride (Nacl 0.9% 1000 Ml) 1,000 mls @ 125 mls/hr IV DIRECT [facility] Last Admin: 06/16/22 11:58 Dose: 125 mls/hr Magnesium Hydroxide (Magnesium Hydroxide (Mom) Oral Liqd Udc) 30 ml PO Q4H PRN PRN Reason: Constipation Morphine Sulfate (Morphine 2 Mg/1 Ml Inj) 2 mg IV Q4H PRN PRN Reason: Pain, Moderate (4-6) Morphine Sulfate (Morphine 4 Mg/1 Ml Inj) 4 mg IV Q4H PRN PRN Reason: Pain , Severe (7-10) Ondansetron HCl (Ondansetron 4 Mg/2 Ml Inj) 4 mg IV Q8H PRN PRN Reason: Nausea And Vomiting Sodium Chloride (Sodium Chloride 0.9% 10 Ml Flush Syringe) 10 ml IV BID [facility] Last Admin: 06/16/22 12:07 Dose: 10 ml Sodium Chloride (Sodium Chloride 0.9% 10 Ml Flush Syringe) 10 ml IV PRN PRN PRN Reason: LINE FLUSH Exam - Constitutional Vitals: Last Vital Signs Temp 98.1 F 06/16/22 07:27 Pulse 63 06/16/22 12:43 Resp 18 06/16/22 12:43 BP 134/73 06/16/22 07:27 Pulse Ox 100 06/16/22 12:43 Results - Labs lab Results: Laboratory Results - last 24 hr 06/15/22 06/15/22 06/15/22 15:35 15:35 15:35 WBC 2.4 L RBC 3.14 L Hgb 10.2 L Hct 31.3 L MCV 100 H MCH 33 H MCHC 33 RDW 17.4 H Plt Count 102 L Lymph % (Auto) 17.3 [place] % (Auto) 11.4 H Eos % (Auto) 0.9 Baso % (Auto) 0.2 Lymph # (Auto) 0.4 L [place] # (Auto) 0.3 Eos # (Auto) 0.0 Baso # (Auto) 0.0 Seg Neutrophils % 70.2 H Seg Neutrophils # 1.7 L PT 15.5 H INR 1.10 Sodium 140 Potassium 4.0 Chloride 106.0 Carbon Dioxide 23 Anion Gap 15 BUN 26 H Creatinine 1.2 Estimated GFR > 60 BUN/Creatinine Ratio 22 Glucose 107 H Calcium 9.1 Magnesium 1.60 L Total Bilirubin 0.60 AST 30 ALT 15 Alkaline Phosphatase 99 Total Creatine Kinase 208 H CK-MB (CK-2) 2.5 CK-MB (CK-2) Rel Index 1.2 Troponin T 0.075 H Total Protein 7.0 Albumin 3.5 L Albumin/Globulin Ratio 1.0 Triglycerides 67 Cholesterol 174 LDL Cholesterol Direct 110 HDL Cholesterol 50 Cholesterol/HDL Ratio 3.48 TSH Free T4 Urine Color Urine Turbidity Specific [place] (Man) Ur Protein (Man) Ur Ketones (Man) Urine Bilirubin (Man) Urine WBC (Auto) Urine RBC (Auto) Urine RBC (Manual) Urine Mucus 06/15/22 06/15/22 06/15/22 16:23 19:34 19:47 WBC RBC Hgb Hct MCV MCH MCHC RDW Plt Count Lymph % (Auto) [place] % (Auto) Eos % (Auto) Baso % (Auto) Lymph # (Auto) [place] # (Auto) Eos # (Auto) Baso # (Auto) Seg Neutrophils % Seg Neutrophils # PT INR Sodium Potassium Chloride Carbon Dioxide Anion Gap BUN Creatinine Estimated GFR BUN/Creatinine Ratio Glucose Calcium Magnesium Total Bilirubin AST ALT Alkaline Phosphatase Total Creatine Kinase CK-MB (CK-2) CK-MB (CK-2) Rel Index Troponin T 0.050 H D Total Protein Albumin Albumin/Globulin Ratio Triglycerides Cholesterol LDL Cholesterol Direct HDL Cholesterol Cholesterol/HDL Ratio TSH 3.110 Free T4 1.48 H Urine Color Yellow Urine Turbidity Clear Specific [place] (Man) 1.010 Ur Protein (Man) 1+ Ur Ketones (Man) Negative Urine Bilirubin (Man) Negative Urine WBC (Auto) 1.0 Urine RBC (Auto) < 1.0 Urine RBC (Manual) Negative Urine Mucus Few 06/16/22 04:00 WBC RBC Hgb Hct MCV MCH MCHC RDW Plt Count Lymph % (Auto) [place] % (Auto) Eos % (Auto) Baso % (Auto) Lymph # (Auto) [place] # (Auto) Eos # (Auto) Baso # (Auto) Seg Neutrophils % Seg Neutrophils # PT INR Sodium 139 Potassium 4.1 Chloride 105.9 Carbon Dioxide 24 Anion Gap 13 BUN 24 H Creatinine 0.9 Estimated GFR > 60 BUN/Creatinine Ratio 27 Glucose 89 Calcium 8.7 Magnesium Total Bilirubin AST ALT Alkaline Phosphatase Total Creatine Kinase CK-MB (CK-2) CK-MB (CK-2) Rel Index Troponin T Total Protein Albumin Albumin/Globulin Ratio Triglycerides Cholesterol LDL Cholesterol Direct HDL Cholesterol Cholesterol/HDL Ratio TSH Free T4 Urine Color Urine Turbidity Specific [place] (Man) Ur Protein (Man) Ur Ketones (Man) Urine Bilirubin (Man) Urine WBC (Auto) Urine RBC (Auto) Urine RBC (Manual) Urine Mucus
--- NOTE | 2022-06-16 15:47 | Vascular Lab Report ---
"DUPLEX DOPPLER ULTRASOUND CAROTID, BILATERAL INDICATION / CLINICAL INFORMATION: syncope. COMPARISON: None available. FINDINGS: RIGHT CAROTID: - PLAQUE ESTIMATE (%): < 50% - CCA velocity: 101 cm/sec. - ICA peak systolic velocity: 112 cm/sec. - ICA/CCA PSV Ratio: 1.1 Right Vertebral Artery: Antegrade flow. LEFT CAROTID: - PLAQUE ESTIMATE: < 50% - CCA velocity: 90 cm/sec. - ICA peak systolic velocity: 96 cm/sec. - ICA/CCA PSV Ratio: 1.1 Left Vertebral Artery: Antegrade flow. IMPRESSION: 1. Right Internal Carotid Artery: Less than 50% diameter stenosis. 2. Left Internal Carotid Artery: Less than 50% diameter stenosis. Velocity criteria are extrapolated from diameter data as defined by the Society of Radiologists in [facility] Consensus Conference, Radiology 2003; 229;340-346. Degree of || ICA PSV || Plaque || ICA/CCA Stenosis (%) || (cm/sec) || estimate (%) || PSV Ratio Normal ............. || ...<125........... || ...None......... || ...<2.0 <50................... || ...<125........... || ......<50......... || ...<2.0 50-69................ || ..125-230...... || ......>50......... || 2.0-4.0 >70 but <100... || >230.............. || .......>50........ || ...>4.0 Near occlusion || High/low/none || ...visible....... || variable Total occlusion || ....None........... || ..no lumen... || ....N/A Signer Name: Cristhian Sosa MD Signed: 06/16/2022 3:43 PM Workstation Name: [email or web address]"
[2022-06-17 06:11] LABS: Hematocrit 29.7 % (35.5-45.6); Hemoglobin 9.8 gm/dl (11.8-15.2); Mean Corpuscular HGB Conc 33 % (32-34); Mean Corpuscular Volume 98 fl (84-94); Red Blood Count 3.03 M/mm3 (3.65-5.03); Red Cell Distribution Width 17.2 % (13.2-15.2)
[2022-06-17 06:20] LABS: Platelet Count 98 K/mm3 (140-440)
[2022-06-17 06:28] LABS: Blood Urea Nitrogen 17 mg/dL (9-20); Calcium 8.4 mg/dL (8.4-10.2); Hemolysis Index 3; Iron 51 ug/dL (49-181); Total Iron Binding Capacity 134 mcg/dL (250-450)
[2022-06-17 06:32] LABS: BUN/Creatinine Ratio 24
[2022-06-17] MEDS: SODIUM CHLORIDE 0.9% 1000 ML 1,000 ML IV SCH (06:34)
[2022-06-17 07:09] LABS: Platelet Estimate Consistent w Auto; Total Cells Counted 100
[2022-06-17 08:29] VITALS: BP 186/88
--- NOTE | 2022-06-17 08:44 | Discharge Summary ---
Providers - Providers Date of Admission: 06/15/22 22:21 Date of discharge: 06/17/22 Attending physician: DA MORRIS 06/15/22 22:20 Consult to Physician [CONS] Routine Comment: Consulting Provider: SUSHILA MCALLISTER Physician Instructions: Reason For Exam: Elevated Troponin 06/15/22 22:45 Consult to Cardiology [CONS] Routine Consulting Provider: SUSHILA MCALLISTER Reason For Exam: Elevated troponin, Syncope 06/16/22 09:56 Consult to Physician [CONS] Routine Comment: Consulting Provider: KRISTA OLIVER Physician Instructions: Reason For Exam: hx multiple myeloma 06/16/22 12:39 Physical Therapy Evaluation and Treat [CONS] Routine Comment: Pt eval and treat Reason For Exam: lower extremities weakness Hospitalization Reason for admission: syncope Condition: Stable Hospital course: 86-year-old male with known history of coronary artery disease with stent placement, multiple myeloma in remission, hypertension, presented to the emergency room for evaluation of syncopal episode. He was in the shower and indicated that he felt lightheaded. He also said he felt weak and thirsty. He later had a syncopal episode while on the shower chair. He has had 2 other episodes prior to reporting to the emergency room. He denied any chest pain or shortness of breath, no nausea or vomiting, no abdominal pain. Work-up in the emergency room revealed elevated troponin of 0.075. BUN of 26. Urinalysis was unremarkable. CT of the head shows no acute intracranial process. 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 Chest x-ray showed no acute findings. The patient was admitted with diagnosis of syncope, history of multiple myeloma, history of CAD with stent. The patient had no arrhythmia on telemetry. Carotid Dopplers were negative. Echocardiogram revealed left ventricular function normal with EF greater than 55% and RV mildly dilated and RV systolic function normal. RVSP was 46 mmHg. Cardiology was consulted and felt syncope was secondary to dehydration/vasovagal. Recommendations for no further cardiac work-up. Patient received IV fluid hydration and stabilized. Elevated troponin was borderline nonspecific and not suggestive of an acute [place] especially given nonspecific EKG and echocardiogram being essentially normal. Hematology/oncology was consulted and felt patient had macrocytic anemia, thrombocytopenia and leukopenia likely secondary to multiple myeloma and liver dysfunction. Labs included SPEP w.DARRON, B12/folate, iron studies. The study can be follow-up as an outpatient. Patient is felt to have received maximal hospital benefit and will be discharged home. Dedicated discharge time 35 minutes Disposition: 01 HOME / SELF CARE / HOMELESS Final Discharge Diagnosis (Prints w/discharge instructions): Syncope, history of multiple myeloma, history of CAD with stent, macrocytic anemia, thrombocytopenia and leukopenia Core Measure Documentation - Palliative Care Palliative Care/ Comfort Measures: Not Applicable - Core Measures Any of the following diagnoses?: none Exam - Constitutional Vitals: Temp Pulse Resp BP Pulse Ox 98.3 F 63 18 186/88 100 06/17/22 07:43 06/17/22 07:59 06/17/22 07:59 06/17/22 07:43 06/17/22 07:59 General appearance: Present: no acute distress, well-nourished - EENT Eyes: Present: PERRL ENT: hearing intact, clear oral mucosa - Neck Neck: Present: supple, normal ROM - Respiratory Respiratory effort: normal Respiratory: bilateral: CTA - Cardiovascular Heart Sounds: Present: S1 & S2. Absent: rub, click - Extremities Extremities: pulses symmetrical, No edema Peripheral Pulses: within normal limits - Abdominal General gastrointestinal: Present: soft, non-tender, non-distended, normal bowel sounds Male genitourinary: Present: normal - Integumentary Integumentary: Present: clear, warm, dry - Musculoskeletal Musculoskeletal: gait normal, strength equal bilaterally - Psychiatric Psychiatric: appropriate mood/affect, intact judgment & insight - Neurologic Neurologic: CNII-XII intact, moves all extremities Plan Activity: advance as tolerated Weight Bearing Status: Weight Bear as Tolerated Diet: low fat, low cholesterol, low salt Follow up with: HARPREET SUAREZ [Other] - 3-5 Days KRISTA OLIVER MD [Staff Physician] - 7 Days
[2022-06-22 22:23] LABS: Abnormal Protein Band 1 0.7 g/dL; Albumin 3.1 g/dL (3.8-4.8); Gamma Globulin 2.1 g/dL (0.8-1.7)
== END 2022-06-17 14:15 | disposition home or self-care (01) | DRG 641 ==
LOC: ED 14:31 → 4A 22:21
PROVIDERS: ADMIT Internal Medicine Geriatric Medicine; ATTEND Hospitalist
DX: E86.0 Dehydration (principal); C90.01 Multiple myeloma in remission; R77.8 Other specified abnormalities of plasma proteins; I25.10 Atherosclerotic heart disease of native coronary artery without angina pectoris; I10 Essential (primary) hypertension; I25.2 Old myocardial infarction; Z79.82 Long term (current) use of aspirin; Z79.899 Other long term (current) drug therapy; Z98.61 Coronary angioplasty status
CPT/HCPCS: 36415; 70450; 71045; 80048; 80053; 80061; 81001; 82550; 82553; 82607; 82728; 82747; 82962; 83550; 83735; 84165; 84439; 84443; 84484; 85007; 85025; 85610; 86334; 93005; 93306; 93880; G0378; C8929; J3475; J7030